=== PATIENT | male | born 1995 | race American Indian/Alaskan Native ===

== ENCOUNTER 2018-04-26 21:50 | Emergency (ER) | payer MEDICARE ==
[2018-04-26] MEDS ORDERED: TYLENOL PO ONE (22:48)
--- NOTE | 2018-04-27 02:23 | Emergency Department Report ---
ED Headache HPI - General Chief Complaint: Headache Stated Complaint: LEFT SIDE HEAD PAIN Time Seen by Provider: 04/27/18 02:06 - History of Present Illness Initial Comments: Physical [id number] -[place] female who presents for left temporal headache 2 days this headache is similar to several previous headaches the past several N duration and intensity patient states headaches usually controlled by Depakote Breakthrough Tylenol patient states he took 3 Tylenol just prior to arrival to ED headache is now resolved there is no pain no photophobia no tinnitus no nausea vomiting no dizziness patient does have PCP and no other neuro symptoms at this time Timing/Duration: 24 hours Quality: moderate Head Injury Location: temporal Recent Head Trauma: chronic headaches Modifying Factors: improves with: movement Associated Symptoms: denies symptoms Allergies/Adverse Reactions: Allergies No Known Allergies Allergy (Verified 04/27/18 02:09) Home Medications: Ambulatory Orders Depakote 500 mg PO BID 04/26/18 Acetaminophen [Tylenol Extra Strength] 1,000 mg PO QID PRN #30 tablet 04/27/18 Metoclopramide [Reglan] 10 mg PO ACHS PRN #30 tablet 04/27/18 diphenhydrAMINE [Benadryl CAP] 25 mg PO Q6HR PRN #30 capsule 04/27/18 ED Review of Systems ROS: Stated complaint: LEFT SIDE HEAD PAIN Other details as noted in HPI Constitutional: denies: chills, fever Eyes: denies: eye pain, eye discharge, vision change ENT: denies: ear pain, throat pain Respiratory: denies: cough, shortness of breath, wheezing Cardiovascular: denies: chest pain, palpitations Endocrine: no symptoms reported Gastrointestinal: denies: abdominal pain, nausea, diarrhea Genitourinary: denies: urgency, dysuria Musculoskeletal: denies: back pain, joint swelling, arthralgia Skin: denies: rash, lesions Neurological: headache Psychiatric: denies: anxiety, depression Hematological/Lymphatic: denies: easy bleeding, easy bruising ED Past Medical Hx - Past Medical History Previous Medical History?: No Hx Psychiatric Treatment: Yes (Schizophrenia) - Surgical History Past Surgical History?: No - Social History Smoking Status: Never Smoker Substance Use Type: None - Medications Home Medications: Home Medications Medication Instructions Recorded Confirmed Last Taken Type Depakote 500 mg PO BID 04/26/18 04/26/18 Unknown History Acetaminophen [Tylenol Extra 1,000 mg PO QID PRN #30 tablet 04/27/18 Unknown Rx Strength] Metoclopramide [Reglan] 10 mg PO ACHS PRN #30 tablet 04/27/18 Unknown Rx diphenhydrAMINE [Benadryl CAP] 25 mg PO Q6HR PRN #30 capsule 04/27/18 Unknown Rx ED Physical Exam - General Limitations: Language Barrier General appearance: alert, in no apparent distress - Head Head exam: Present: atraumatic, normocephalic, normal inspection - Eye Eye exam: Present: normal appearance, PERRL, EOMI Pupils: Present: normal accommodation - ENT ENT exam: Present: normal exam, normal orophraynx, mucous membranes moist, TM's normal bilaterally, normal external ear exam - Neck Neck exam: Present: normal inspection, full ROM. Absent: tenderness, meningismus, lymphadenopathy, thyromegaly - Expanded Neck Exam Expanded Neck exam: Absent: tenderness, midline deformity, anterior neck swelling, thyroid mass, carotid bruit, tracheal deviation - Respiratory Respiratory exam: Present: normal lung sounds bilaterally. Absent: respiratory distress, wheezes, stridor, chest wall tenderness - Cardiovascular Cardiovascular Exam: Present: regular rate, normal rhythm, normal heart sounds. Absent: systolic murmur, diastolic murmur, rubs, gallop - GI/Abdominal GI/Abdominal exam: Present: soft, normal bowel sounds. Absent: tenderness, bruit, hernia - Rectal Rectal exam: Present: deferred - Extremities Exam Extremities exam: Present: normal inspection, full ROM, tenderness, normal capillary refill - Back Exam Back exam: Present: normal inspection, full ROM. Absent: tenderness - Neurological Exam Neurological exam: Present: alert, oriented X3, CN II-XII intact, normal gait, reflexes normal. Absent: motor sensory deficit - Expanded Neurological Exam Expanded Patient oriented to: Present: person, place, time Speech: Present: fluid speech Cranial nerves: EOM's Intact: Normal, Gag Reflex: Normal, Tongue Deviation: Normal, Nystagmus: Normal, Facial Sensation: Normal Cerebellar function: Romberg: Normal Upper motor neuron: Simba Neglect: Normal, Pronator Drift: Normal, Sensory Extinction: Normal Sensory exam: Upper Extremity Light Touch: Normal, Upper Extremity Pin Prick: Normal, Upper Extremity Temperature: Normal, UE 2 Point Discrimination: Normal, Lower Extremity Light Touch: Normal, Lower Extremity Pin Prick: Normal, Lower Extremity Temperature: Normal, LE 2 Point Discrimination: Normal Motor strength exam: RUE: 5, LUE: 5, RLE: 5, LLE: 5 Best Eye Response ([place]ston): (4) open spontaneously Best Motor Response (Winston): (6) obeys commands Best Verbal Response ([place]): (5) oriented [place] Total: 15 - Psychiatric Psychiatric exam: Present: normal affect, normal mood - Skin Skin exam: Present: warm, dry, intact, normal color. Absent: rash ED Course Vital Signs 04/26/18 22:43 Temperature 97.9 F Pulse Rate 62 Respiratory 18 Rate Blood Pressure 128/69 O2 Sat by Pulse 99 Oximetry ED Medical Decision Making - Medical Decision Making headache is relieved This wasn't an acute exacerbation of chronic headaches. Relieved by Tylenol plan patient will continue to take Depakote as her PCP refill Tylenol Benadryl Reglan for when necessary breakthrough headaches patient will return to emergency department should symptoms worsen. Otherwise we'll see PCP in 2 days patient verbalized agreement and understanding of the same , pt is currently a/io x 3 ambulatory with steady gait and nad at this time. Critical care attestation.: If time is entered above; I have spent that time in minutes in the direct care of this critically ill patient, excluding procedure time. ED Disposition Clinical Impression: Headache Qualifiers: Headache type: unspecified Headache chronicity pattern: acute headache Intractability: not intractable Qualified Code(s): R51 - Headache Disposition: -01 TO HOME OR SELFCARE Is pt being admited?: No Does the pt Need Aspirin: No Condition: Stable Instructions: Acute Headache (ED) Prescriptions: Acetaminophen [Tylenol Extra Strength] 1,000 mg PO QID PRN #30 tablet PRN Reason: Headache diphenhydrAMINE [Benadryl CAP] 25 mg PO Q6HR PRN #30 capsule PRN Reason: Headache Metoclopramide [Reglan] 10 mg PO ACHS PRN #30 tablet PRN Reason: Headache Referrals: NELSON CANAS MD [Primary Care Provider] - 3-5 Days Forms: Work/School Release Form(ED) Time of Disposition: 02:28
[2018-04-27 02:40] VITALS: BP 126/75
== END 2018-04-27 02:39 | disposition home or self-care (01) ==
LOC: ED 21:50
DX: R51 Headache (principal); F20.9 Schizophrenia, unspecified

== ENCOUNTER 2018-05-15 20:14 | Emergency (ER) | payer MEDICARE ==
--- NOTE | 2018-05-15 20:38 | Emergency Department Report ---
Blank Doc - Documentation Documentation: This is a 22-year-old male that he tried to kill himself but jumping of a nhan nena and moving vehicle. Denies any HI. Denies any drug or alcohol. Denies any other complaints. This initial assessment diagnostic orders/clinical plan/treatment(s) is/are subject to change based on patient's health status, clinical progression and re- assessment by fellow clinical providers in the ED. Further treatment and workup at subsequent clinical providers discretion. Patient/guardians urged not to elope from ED s their condition may be serious if not clinically assessed and managed. Initial orders include: 1-seed cutter was notified patient to be sent back [facility] due to SI 2- RN was notified patient to be closed monitor at all times. 3- ED psych orders placed
--- NOTE | 2018-05-15 20:59 | Emergency Department Report ---
ED Psych HPI - General Chief Complaint: Psych Stated Complaint: MICKEY EVAL Time Seen by Provider: 05/15/18 20:35 Source: patient Mode of arrival: Ambulatory - History of Present Illness Initial Comments: Patient is 22 years old male, unknown to me, history of bipolar disorder. Lizbeth ent brought to the emergency room by his manager sterile at the transitional home for suicidal ideation. Patient manager sterile informed the triage nurse that patient texted him stating that he tried to kill himself twice, he tried to jump off a balcony and attempted to jump out of a moving van, both incident witnessed by his manager sterile Mr. Shultz. In the emergency room patient is calm, denying any suicidal or homicidal ideation. He denied auditory or visual hallucination. Patient denied any other symptoms. MD Complaint: suicidal ideation Associated Psychiatric Symptoms: suicidal ideation - Related Data Home Medications Medication Instructions Recorded Confirmed Last Taken Depakote 500 mg PO BID 04/26/18 04/26/18 Unknown Previous Rx's Medication Instructions Recorded Last Taken Type Acetaminophen [Tylenol Extra 1,000 mg PO QID PRN #30 tablet 04/27/18 Unknown Rx Strength] Metoclopramide [Reglan] 10 mg PO ACHS PRN #30 tablet 04/27/18 Unknown Rx diphenhydrAMINE [Benadryl CAP] 25 mg PO Q6HR PRN #30 capsule 04/27/18 Unknown Rx Allergies Allergy/AdvReac Type Severity Reaction Status Date / Time No Known Allergies Allergy Verified 04/27/18 02:09 ED Review of Systems ROS: Stated complaint: EVAL Other details as noted in HPI Comment: All other systems reviewed and negative Constitutional: denies: chills, fever Respiratory: denies: cough, orthopnea, shortness of breath, SOB with exertion, SOB at rest, wheezing Cardiovascular: denies: chest pain, palpitations Gastrointestinal: denies: abdominal pain, nausea, vomiting, diarrhea, constipation, hematemesis, hematochezia Neurological: denies: headache, weakness, numbness, paresthesias, confusion, abnormal gait Psychiatric: denies: anxiety, depression, auditory hallucinations, visual hallucinations, homicidal thoughts, suicidal thoughts ED Past Medical Hx - Past Medical History Hx Psychiatric Treatment: Yes (Schizophrenia, Bipolar,) - Social History Smoking Status: Current Every Day Smoker Substance Use Type: None - Medications Home Medications: Home Medications Medication Instructions Recorded Confirmed Last Taken Type Depakote 500 mg PO BID 04/26/18 04/26/18 Unknown History Acetaminophen [Tylenol Extra 1,000 mg PO QID PRN #30 tablet 04/27/18 Unknown Rx Strength] Metoclopramide [Reglan] 10 mg PO ACHS PRN #30 tablet 04/27/18 Unknown Rx diphenhydrAMINE [Benadryl CAP] 25 mg PO Q6HR PRN #30 capsule 04/27/18 Unknown Rx ED Physical Exam - General Limitations: No Limitations General appearance: alert, in no apparent distress - Head Head exam: Present: atraumatic, normocephalic, normal inspection - Eye Eye exam: Present: normal appearance, PERRL - ENT ENT exam: Present: normal exam, normal orophraynx, mucous membranes moist - Neck Neck exam: Present: normal inspection, full ROM. Absent: tenderness, meningismus, lymphadenopathy, thyromegaly - Respiratory Respiratory exam: Present: normal lung sounds bilaterally. Absent: respiratory distress, wheezes, rales, rhonchi, stridor, chest wall tenderness, accessory muscle use, decreased breath sounds, prolonged expiratory - Cardiovascular Cardiovascular Exam: Present: regular rate, normal rhythm, normal heart sounds - GI/Abdominal GI/Abdominal exam: Present: soft, normal bowel sounds. Absent: distended, tenderness, guarding, rebound, rigid, organomegaly, mass, bruit, pulsatile mass, hernia - Extremities Exam Extremities exam: Present: normal inspection, full ROM, normal capillary refill. Absent: pedal edema, calf tenderness - Back Exam Back exam: Present: normal inspection, full ROM. Absent: CVA tenderness (R), CVA tenderness (L) - Neurological Exam Neurological exam: Present: alert, oriented X3, CN II-XII intact, normal gait - Psychiatric Psychiatric exam: Present: normal mood. Absent: depressed, agitated, anxious, flat affect, manic, homicidal ideation, suicidal ideation - Skin Skin exam: Present: warm, intact, normal color ED Course Vital Signs 05/15/18 20:36 Temperature 97.9 F Pulse Rate 85 Respiratory 20 Rate Blood Pressure 123/75 O2 Sat by Pulse 98 Oximetry ED Medical Decision Making - Lab Data Result diagrams: 05/15/18 21:10 05/15/18 21:10 Critical care attestation.: If time is entered above; I have spent that time in minutes in the direct care of this critically ill patient, excluding procedure time. ED Disposition Clinical Impression: Suicide attempt Disposition: [id number]/TX-65 PSY HOSP/PSY UNIT Is pt being admited?: No Condition: Stable Referrals: PRIMARY CARE, [Primary Care Provider] - 3-5 Days
[2018-05-15 21:18] LABS: Bilirubin,Urine NEG (Negative); Blood,Urine NEG (Negative); Color,Urine Yellow (Yellow); Mucus,Urine FEW /HPF
[2018-05-15 21:19] LABS: WBC,Urine < 1.0 /HPF (0.0-6.0)
[2018-05-15 21:26] LABS: Amphetamine Screen,Urine PRESUMPTIVE NEGATIVE; Benzodiazepines Screen,Urine PRESUMPTIVE NEGATIVE; Cannabinoid Screen,Urine PRESUMPTIVE NEGATIVE; Cocaine Screen,Urine PRESUMPTIVE NEGATIVE; Methadone Screen,Urine PRESUMPTIVE NEGATIVE; Opiate Screen,Urine PRESUMPTIVE NEGATIVE
[2018-05-15 21:31] LABS: Basophils % (Auto) 0.8 % (0.0-1.8); Eosinophils % (Auto) 0.8 % (0.0-4.3); Hematocrit 44.7 % (35.5-45.6); Hemoglobin 14.7 gm/dl (11.8-15.2); Lymphocytes # (Auto) 1.7 K/mm3 (1.2-5.4); Lymphocytes % (Auto) 32.9 % (13.4-35.0); Mean Corpuscular HGB Conc 33 % (32-34); Mean Corpuscular Volume 90 fl (84-94); Monocytes # (Auto) 0.5 K/mm3 (0.0-0.8); Monocytes % (Auto) 9.2 % (0.0-7.3); Platelet Count 178 K/mm3 (140-440); Red Cell Distribution Width 14.2 % (13.2-15.2)
[2018-05-15 21:45] LABS: Alanine Aminotransferase 14 units/L (7-56); Albumin 4.6 g/dL (3.9-5); BUN/Creatinine Ratio 12; Blood Urea Nitrogen 11 mg/dL (9-20); Calcium 9.4 mg/dL (8.4-10.2); Hemolysis Index 6
[2018-05-16 08:30] VITALS: BP 119/80
== END 2018-05-16 08:31 ==
LOC: ED 20:14
DX: F20.9 Schizophrenia, unspecified (principal); F31.9 Bipolar disorder, unspecified; F17.200 Nicotine dependence, unspecified, uncomplicated; T14.91XA Suicide attempt, initial encounter; Y93.89 Activity, other specified; Y99.8 Other external cause status; Y92.89 Other specified places as the place of occurrence of the external cause
CPT/HCPCS: 36415; 80053; 80307; 81001; 84443; 85025; 99285; G0480; 80320

== ENCOUNTER 2018-07-23 14:47 | Emergency (ER) | payer MEDICARE ==
[2018-07-23] MEDS ORDERED: IBUPROFEN PO ONE (14:55)
--- NOTE | 2018-07-23 14:57 | Emergency Department Report ---
Stated Complaint: PAIN IN BOTH FEET Time Seen by Provider: 07/23/18 14:54 - HPI History of Present Illness: FOOT PAIN IN CORRECTION CO B FOOT PAIN CHRONIC NAD VSS MSE screening note: Focused history and physical exam performed. Due to findings the following was ordered: ED Disposition for MSE Condition: Stable
[2018-07-23 15:39] VITALS: BP 133/67
--- NOTE | 2018-07-23 19:03 | Emergency Department Report ---
ED Extremity Problem HPI - General Chief complaint: Extremity Problem,Nontraumatic Stated complaint: PAIN IN BOTH FEET Time Seen by Provider: 07/23/18 14:54 Source: patient Mode of arrival: Ambulatory Limitations: No Limitations - History of Present Illness Severity scale (0 -10): 6 - Related Data Home Medications Medication Instructions Recorded Confirmed Last Taken Depakote 500 mg PO BID 04/26/18 05/16/18 Unknown Previous Rx's Medication Instructions Recorded Last Taken Type Acetaminophen [Tylenol Extra 1,000 mg PO QID PRN #30 tablet 04/27/18 Unknown Rx Strength] Metoclopramide [Reglan] 10 mg PO ACHS PRN #30 tablet 04/27/18 Unknown Rx diphenhydrAMINE [Benadryl CAP] 25 mg PO Q6HR PRN #30 capsule 04/27/18 Unknown Rx Allergies Allergy/AdvReac Type Severity Reaction Status Date / Time No Known Allergies Allergy Verified 04/27/18 02:09 ED Review of Systems ROS: Stated complaint: PAIN IN BOTH FEET Other details as noted in HPI ED Past Medical Hx - Past Medical History Previous Medical History?: Yes Hx Psychiatric Treatment: Yes (Schizophrenia, Bipolar,) - Surgical History Past Surgical History?: No - Social History Smoking Status: Never Smoker Substance Use Type: Marijuana - Medications Home Medications: Home Medications Medication Instructions Recorded Confirmed Last Taken Type Depakote 500 mg PO BID 04/26/18 05/16/18 Unknown History Acetaminophen [Tylenol Extra 1,000 mg PO QID PRN #30 tablet 04/27/18 05/16/18 Unknown Rx Strength] Metoclopramide [Reglan] 10 mg PO ACHS PRN #30 tablet 04/27/18 05/16/18 Unknown Rx diphenhydrAMINE [Benadryl CAP] 25 mg PO Q6HR PRN #30 capsule 04/27/18 05/16/18 Unknown Rx ED Physical Exam - General Limitations: No Limitations ED Course Vital Signs 07/23/18 15:38 Temperature 98.4 F Pulse Rate 57 L Respiratory 18 Rate Blood Pressure 133/67 O2 Sat by Pulse 97 Oximetry Critical care attestation.: If time is entered above; I have spent that time in minutes in the direct care of this critically ill patient, excluding procedure time. ED Disposition Condition: Stable Referrals: MILY JARQUIN MD [Primary Care Provider] - 3-5 Days
== END 2018-07-23 19:10 | disposition left against medical advice (07) ==
LOC: ED 14:47
DX: M79.671 Pain in right foot (principal); M79.672 Pain in left foot; Z53.21 Procedure and treatment not carried out due to patient leaving prior to being seen by health care provider

== ENCOUNTER 2019-02-10 19:16 | Emergency (ER) | payer MEDICARE ==
[2019-02-10 19:26] VITALS: BP 133/85
--- NOTE | 2019-02-10 19:26 | Emergency Department Report ---
Blank Doc - Documentation Documentation: 23-year-old male that presents with midsternum chest pain after eating a chili dog and smoking a cigaret. Denies any radiation of SOB. This initial assessment/diagnostic orders/clinical plan/treatment(s) is/are subject to change based on patient's health status, clinical progression and re- assessment by fellow clinical providers in the ED. Further treatment and workup at subsequent clinical providers discretion. Patient/guardians urged not to elope from the ED as their condition may be serious if not clinically assessed and managed. Initial orders include: 1- Patient sent to [facility] for further evaluation and treatment 2- EKG 3- CXR
--- NOTE | 2019-02-10 20:38 | XRay Report ---
CHEST 2 VIEWS INDICATION / CLINICAL INFORMATION: MAIN: cp; Pt. c/o sharp pain to upper chest after "smoking a cigarette really fast." and "eating a ch faisal dog." . COMPARISON: None available. FINDINGS: SUPPORT DEVICES: None. HEART / MEDIASTINUM: No significant abnormality. LUNGS / PLEURA: No significant pulmonary or pleural abnormality. No pneumothorax. ADDITIONAL FINDINGS: No significant additional findings. IMPRESSION: 1. No acute findings. Signer Name: Quinton Gallego MD Signed: 02/10/2019 8:33 PM Workstation Name: [id number]
== END 2019-02-10 23:40 | disposition left against medical advice (07) ==
LOC: ED 19:16
DX: R07.89 Other chest pain (principal); Z53.21 Procedure and treatment not carried out due to patient leaving prior to being seen by health care provider
CPT/HCPCS: 71046

== ENCOUNTER 2019-06-26 20:22 | Emergency (ER) | payer MEDICARE ==
[~2019-06-26 20:22] MED LIST: HALOPERIDOL LACTATE 5 MG/1 ML INJ IM ONE; LORazepam 2 MG/ML VIAL IM ONE
[2019-06-26] MEDS ORDERED: HALOPERIDOL LACTATE 5 MG/1 ML INJ ONE (20:51)
[2019-06-26] MEDS ORDERED: LORazepam 2 MG/ML VIAL ONE (20:51)
[2019-06-26 20:56] VITALS: BP 134/72
[2019-06-26] MEDS ORDERED: ALPRAZolam 0.5 MG TAB PO ONE (20:57)
[2019-06-26] MEDS ORDERED: ONDANSETRON 4 MG ODT TAB PO ONE (20:57)
--- NOTE | 2019-06-26 20:57 | Emergency Department Report ---
ED General Adult HPI - General Chief complaint: Pain General Stated complaint: SORE THROAT/VOMITING Time Seen by Provider: 06/26/19 20:44 Source: patient, EMS ( EMS documentation not available at time of chart dictation ), RN notes reviewed, old records reviewed Mode of arrival: Ambulatory Limitations: Other (Patient is a poor historian) - History of Present Illness Initial comments: This is a 23-year-old gentleman who is currently in a alf, for long-term reasons, presents to the hospital with EMS with a complaint of discomfort over his Johnathan's apple, sore throat, resolved nausea and vomiting, paralumbar back pain, and left-sided throbbing shoulder pain. Patient reports that he was outside all day, and he did not want to go back inside to his alf. It is uncertain who called 911. In the emergency room, the patient makes no complaint of headache, neck pain, chest pain, abdominal pain, shortness of breath. There is no complaint of focal extremity weakness and/or numbness. He is not homicidal suicidal. He laughs and giggles inappropriately during his physical examination. He is initially somewhat hyperverbal, but he we are able to calm him down with verbal techniques. At the moment, he is able to tolerate oral feeds in his room, and he is in no acute distress. He is not currently accompanied by a friend, family member or guardian. -: days(s) (1) Location: mouth, back, left, upper extremity Quality: other Consistency: other Improves with: other Worsens with: other Associated Symptoms: other - Related Data Home Medications Medication Instructions Recorded Confirmed Last Taken Depakote 500 mg PO BID 04/26/18 05/16/18 Unknown Previous Rx's Medication Instructions Recorded Last Taken Type Acetaminophen [Tylenol Extra 1,000 mg PO QID PRN #30 tablet 04/27/18 Unknown Rx Strength] Metoclopramide [Reglan] 10 mg PO ACHS PRN #30 tablet 04/27/18 Unknown Rx diphenhydrAMINE [Benadryl CAP] 25 mg PO Q6HR PRN #30 capsule 04/27/18 Unknown Rx Allergies Allergy/AdvReac Type Severity Reaction Status Date / Time No Known Allergies Allergy Verified 04/27/18 02:09 ED Review of Systems ROS: Stated complaint: SORE THROAT/VOMITING Other details as noted in HPI Constitutional: denies: fever Eyes: denies: eye discharge ENT: other (Reports pain over his abdomen). denies: ear pain Respiratory: denies: shortness of breath Gastrointestinal: denies: nausea, vomiting Genitourinary: denies: testicular pain Musculoskeletal: back pain, arthralgia Psychiatric: denies: homicidal thoughts, suicidal thoughts ED Past Medical Hx - Past Medical History Hx Psychiatric Treatment: Yes (Schizophrenia, Bipolar,) - Social History Smoking Status: Unknown if ever smoked Substance Use Type: None - Medications Home Medications: Home Medications Medication Instructions Recorded Confirmed Last Taken Type Depakote 500 mg PO BID 04/26/18 05/16/18 Unknown History Acetaminophen [Tylenol Extra 1,000 mg PO QID PRN #30 tablet 04/27/18 05/16/18 Unknown Rx Strength] Metoclopramide [Reglan] 10 mg PO ACHS PRN #30 tablet 04/27/18 05/16/18 Unknown Rx diphenhydrAMINE [Benadryl CAP] 25 mg PO Q6HR PRN #30 capsule 04/27/18 05/16/18 Unknown Rx ED Physical Exam - General Limitations: Other (Patient giggling inappropriately) General appearance: alert, in no apparent distress - Head Head exam: Present: atraumatic, normocephalic - Eye Eye exam: Present: normal appearance, EOMI - ENT ENT exam: Present: normal exam, normal orophraynx, mucous membranes moist, normal external ear exam - Neck Neck exam: Present: normal inspection, full ROM. Absent: tenderness, meningismus - Respiratory Respiratory exam: Present: normal lung sounds bilaterally. Absent: respiratory distress - Cardiovascular Cardiovascular Exam: Present: regular rate, normal rhythm, normal heart sounds. Absent: bradycardia, tachycardia, irregular rhythm, systolic murmur, diastolic murmur, rubs, gallop - GI/Abdominal GI/Abdominal exam: Present: soft, normal bowel sounds. Absent: distended, tenderness, guarding, rebound, rigid, pulsatile mass - Rectal Rectal exam: Present: deferred - Extremities Exam Extremities exam: Present: normal inspection, full ROM, other (2+ pulses noted in the bilateral upper and lower extremities. There is no palpable cord. negative Homans sign. Muscular compartments are soft. The pelvis is stable.). Absent: pedal edema, calf tenderness - Back Exam Back exam: Present: normal inspection - Neurological Exam Neurological exam: Present: alert, oriented X3, normal gait, other (There is no facial droop. The tongue is midline. Extraocular movements are intact bilaterally. There is 5 out of 5 strength in bilateral upper and lower extremities. Sensation is intact to light touch bilateral upper and lower extremities. T There is a normal gait.). Absent: motor sensory deficit - Psychiatric Psychiatric exam: Present: anxious. Absent: homicidal ideation, suicidal ideation - Skin Skin exam: Present: warm, dry, intact, normal color. Absent: rash ED Course Vital Signs 06/26/19 20:39 Temperature 98.3 F Pulse Rate 98 H Respiratory 16 Rate Blood Pressure 134/72 O2 Sat by Pulse 98 Oximetry ED Medical Decision Making - Lab Data Vital Signs 06/26/19 20:39 Temperature 98.3 F Pulse Rate 98 H Respiratory 16 Rate Blood Pressure 134/72 O2 Sat by Pulse 98 Oximetry - Medical Decision Making Differential diagnosis, including but not limited to: General medical examination Assessment and plan: 23-year-old gentleman, who was initially laughing inappropriately, giggling, somewhat disorganized, but lives in a alf, who is alert and oriented x3, walks with a steady gait, moving 4 extremities, protecting his airway, no active vomiting, with no obvious emergent pathology noted over his neck, shoulder, or back. His physical exam is wholly unremarkable. He is resting comfortably at the time, in no acute distress. There is no history of overdose. He does not appear to have an emergent medical condition at this time. He does not meet criteria for 1013 or involuntary hold to psychiatric facility at this time. Patient does not appear to have an emergent medical issue present and he can follow-up with his outpatient primary care doctor and return to his alf. Critical care attestation.: If time is entered above; I have spent that time in minutes in the direct care of this critically ill patient, excluding procedure time. ED Disposition Clinical Impression: General medical exam, History of nausea Disposition: -01 TO HOME OR SELFCARE Is pt being admited?: No Does the pt Need Aspirin: No Condition: Stable Additional Instructions: Patient does not appear to have an emergent medical condition at this time. Patient does not appear to have an emergent reason that would preclude him from returning to his alf at this time. Patient may follow-up with his outpatient primary care doctor within the next 2 weeks. Please return to the emergency room right away with new, worsened or different symptoms, or symptoms not present on the initial emergency room evaluation Referrals: MILY JARQUIN MD [Staff Physician] - 3-5 Days [facility] [Provider Group] - 3-5 Days Time of Disposition: 21:25 (d/c to alf)
== END 2019-06-26 21:25 | disposition home or self-care (01) ==
LOC: ED 20:22
DX: J02.9 Acute pharyngitis, unspecified (principal); M25.512 Pain in left shoulder; F31.9 Bipolar disorder, unspecified
CPT/HCPCS: 99283; J1630; J2060; Q0162

== ENCOUNTER 2019-07-14 14:36 | Emergency (ER) | payer OTHER, MEDICARE ==
--- NOTE | 2019-07-14 15:15 | Emergency Department Report ---
ED Psych HPI - General Chief Complaint: Psych Stated Complaint: MH EVAL Time Seen by Provider: 07/14/19 15:06 Source: patient Mode of arrival: Ambulatory - History of Present Illness Initial Comments: Patient is a 23-year-old -[place] gentleman with a past medical history of schizophrenia who was sent in because of abnormal behavior. Patient's therapist believes he is not compliant with his medications. Patient was found in the waiting room licking hand electronic wirer. Patient states he is having auditory hallucinations but would not say what the voices are saying. He only states that they are saying a lot. Patient is having occasional outbursts which are off topic. Patient is when asked how he was feeling stated that he wants to see is to girlfriends. Patient occasionally has some jerking movements in the room as well. He denies any homicidal suicidal ideations. States he has no alcohol or drug use but does smoke cigarettes. - Related Data Home Medications Medication Instructions Recorded Confirmed Last Taken Depakote 500 mg PO BID 04/26/18 05/16/18 Unknown Previous Rx's Medication Instructions Recorded Last Taken Type Acetaminophen [Tylenol Extra 1,000 mg PO QID PRN #30 tablet 04/27/18 Unknown Rx Strength] Metoclopramide [Reglan] 10 mg PO ACHS PRN #30 tablet 04/27/18 Unknown Rx diphenhydrAMINE [Benadryl CAP] 25 mg PO Q6HR PRN #30 capsule 04/27/18 Unknown Rx Allergies Allergy/AdvReac Type Severity Reaction Status Date / Time No Known Allergies Allergy Verified 04/27/18 02:09 ED Review of Systems ROS: Stated complaint: MH EVAL Other details as noted in HPI Comment: All other systems reviewed and negative ED Past Medical Hx - Past Medical History Previous Medical History?: Yes Hx Psychiatric Treatment: Yes (Schizophrenia, Bipolar,) - Social History Smoking Status: Unknown if ever smoked Substance Use Type: None - Medications Home Medications: Home Medications Medication Instructions Recorded Confirmed Last Taken Type Depakote 500 mg PO BID 04/26/18 05/16/18 Unknown History Acetaminophen [Tylenol Extra 1,000 mg PO QID PRN #30 tablet 04/27/18 05/16/18 Unknown Rx Strength] Metoclopramide [Reglan] 10 mg PO ACHS PRN #30 tablet 04/27/18 05/16/18 Unknown Rx diphenhydrAMINE [Benadryl CAP] 25 mg PO Q6HR PRN #30 capsule 04/27/18 05/16/18 Unknown Rx ED Physical Exam - General Limitations: No Limitations General appearance: alert, in no apparent distress - Head Head exam: Present: atraumatic, normocephalic - Eye Eye exam: Present: normal appearance - ENT ENT exam: Present: normal orophraynx, mucous membranes moist - Neck Neck exam: Present: normal inspection - Respiratory Respiratory exam: Present: normal lung sounds bilaterally. Absent: respiratory distress, wheezes, rales, rhonchi - Cardiovascular Cardiovascular Exam: Present: regular rate, normal rhythm, normal heart sounds. Absent: systolic murmur, diastolic murmur, rubs, gallop - GI/Abdominal GI/Abdominal exam: Present: soft, normal bowel sounds. Absent: distended, tenderness, guarding, rebound - Rectal Rectal exam: Present: deferred - Extremities Exam Extremities exam: Present: normal inspection - Back Exam Back exam: Present: normal inspection - Neurological Exam Neurological exam: Present: alert, oriented X3 - Psychiatric Psychiatric exam: Present: normal affect, normal mood - Skin Skin exam: Present: warm, dry, intact, normal color. Absent: rash ED Course Vital Signs 07/14/19 07/14/19 07/14/19 14:42 15:40 15:48 Temperature 98.3 F 98.3 F Pulse Rate 67 66 Respiratory 18 16 18 Rate Blood Pressure 124/77 124/77 O2 Sat by Pulse 98 98 Oximetry - Reevaluation(s) Reevaluation #1: 07/14/19 16:39 Patient is medically cleared at this time for psychiatric evaluation Reevaluation #2: 07/14/19 18:31 SOBEIDA PHIPPS Male : 1995 MedRec# [id number] 07/14/19 16:54 - MH Staffing Manager's Note by NEYMAR SAHIKH Acct Num: [id number] : 1995 Patient Age: 23 Pt is a 23 yo AA male presenting to ED for MHE, as pt was presenting with abnormal behavior at outpatient treatment program. During ax, pt presented as bizarre, with tangential thought process, hyperverbal speech and difficulty following direction of conversation. Pt presented with delayed responses throughout assessment and appears to be internally preoccupied. When assistant field hockey coach inquired about A/V H, pt confirmed hearing voices but is guarded with details and informed assistant field hockey coach that its a secret. Pt confirmed that voices are command in nature. Pt reports a dx of Schizoaffective Disorder and denies non- compliance with medication; however, triage note states that pt has not been taking medication. Pt initially reported homelessness but pt resides in [facility] and attends [facility] treatment program. Pt denies legal issues. Pt reports marijuana use, unknown amount. Staffing Manager to refer pt IP for stabilization, as pt presents as manic and with acute psychosis. [address] Initialized on 07/14/19 16:54 - END OF NOTE ED Medical Decision Making - Lab Data Result diagrams: 07/14/19 15:16 07/14/19 15:16 Lab Results 07/14/19 07/14/19 07/14/19 Range/Units 15:16 15:16 15:16 WBC 4.5 (4.5-11.0) K/mm3 RBC 4.72 (3.65-5.03) M/mm3 Hgb 13.9 (11.8-15.2) gm/dl Hct 42.7 (35.5-45.6) % MCV 90 (84-94) fl MCH 29 (28-32) pg MCHC 33 (32-34) % RDW 14.3 (13.2-15.2) % Plt Count 204 (140-440) K/mm3 Lymph % (Auto) 23.7 (13.4-35.0) % [place] % (Auto) 9.6 H (0.0-7.3) % Eos % (Auto) 0.4 (0.0-4.3) % Baso % (Auto) 0.7 (0.0-1.8) % Lymph # 1.1 L (1.2-5.4) K/mm3 [place] # 0.4 (0.0-0.8) K/mm3 Eos # 0.0 (0.0-0.4) K/mm3 Baso # 0.0 (0.0-0.1) K/mm3 Seg Neutrophils % 65.6 (40.0-70.0) % Seg Neutrophils # 2.9 (1.8-7.7) K/mm3 Sodium 138 (137-145) mmol/L Potassium 3.9 (3.6-5.0) mmol/L Chloride 102.0 (98-107) mmol/L Carbon Dioxide 23 (22-30) mmol/L Anion Gap 17 mmol/L BUN 9 (9-20) mg/dL Creatinine 1.0 (0.8-1.5) mg/dL Estimated GFR > 60 ml/min BUN/Creatinine Ratio 9 % Glucose 113 H (75-100) mg/dL Calcium 9.5 (8.4-10.2) mg/dL Urine Color (Yellow) Urine Turbidity (Clear) Urine pH (5.0-7.0) Ur Specific [place] (1.003-1.030) Urine Protein (Negative) mg/dL Urine Glucose (UA) (Negative) mg/dL Urine Ketones (Negative) mg/dL Urine Blood (Negative) Urine Nitrite (Negative) Urine Bilirubin (Negative) Urine Urobilinogen (<2.0) mg/dL Ur Leukocyte Esterase (Negative) Urine WBC (Auto) (0.0-6.0) /HPF Urine RBC (Auto) (0.0-6.0) /HPF Urine Mucus /HPF Salicylates < 0.3 L (2.8-20.0) mg/dL Urine Opiates Screen Urine Methadone Screen Acetaminophen (10.0-30.0) ug/mL Ur Barbiturates Screen Ur Phencyclidine Scrn Ur Amphetamines Screen U Benzodiazepines Scrn Urine Cocaine Screen U Marijuana (THC) Screen Drugs of Abuse Note Plasma/Serum Alcohol (0-0.07) % 07/14/19 07/14/19 07/14/19 Range/Units 15:16 15:16 Unknown WBC (4.5-11.0) K/mm3 RBC (3.65-5.03) M/mm3 Hgb (11.8-15.2) gm/dl Hct (35.5-45.6) % MCV (84-94) fl MCH (28-32) pg MCHC (32-34) % RDW (13.2-15.2) % Plt Count (140-440) K/mm3 Lymph % (Auto) (13.4-35.0) % [place] % (Auto) (0.0-7.3) % Eos % (Auto) (0.0-4.3) % Baso % (Auto) (0.0-1.8) % Lymph # (1.2-5.4) K/mm3 [place] # (0.0-0.8) K/mm3 Eos # (0.0-0.4) K/mm3 Baso # (0.0-0.1) K/mm3 Seg Neutrophils % (40.0-70.0) % Seg Neutrophils # (1.8-7.7) K/mm3 Sodium (137-145) mmol/L Potassium (3.6-5.0) mmol/L Chloride (98-107) mmol/L Carbon Dioxide (22-30) mmol/L Anion Gap mmol/L BUN (9-20) mg/dL Creatinine (0.8-1.5) mg/dL Estimated GFR ml/min BUN/Creatinine Ratio % Glucose (75-100) mg/dL Calcium (8.4-10.2) mg/dL Urine Color Yellow (Yellow) Urine Turbidity Clear (Clear) Urine pH 8.0 H (5.0-7.0) Ur Specific [place] 1.023 (1.003-1.030) Urine Protein <15 mg/dl (Negative) mg/dL Urine Glucose (UA) Neg (Negative) mg/dL Urine Ketones Tr (Negative) mg/dL Urine Blood Neg (Negative) Urine Nitrite Neg (Negative) Urine Bilirubin Neg (Negative) Urine Urobilinogen 2.0 (<2.0) mg/dL Ur Leukocyte Esterase Neg (Negative) Urine WBC (Auto) 1.0 (0.0-6.0) /HPF Urine RBC (Auto) 1.0 (0.0-6.0) /HPF Urine Mucus 1+ /HPF Salicylates (2.8-20.0) mg/dL Urine Opiates Screen Urine Methadone Screen Acetaminophen < 5.0 L (10.0-30.0) ug/mL Ur Barbiturates Screen Ur Phencyclidine Scrn Ur Amphetamines Screen U Benzodiazepines Scrn Urine Cocaine Screen U Marijuana (THC) Screen Drugs of Abuse Note Plasma/Serum Alcohol < 0.01 (0-0.07) % 07/14/19 Range/Units Unknown WBC (4.5-11.0) K/mm3 RBC (3.65-5.03) M/mm3 Hgb (11.8-15.2) gm/dl Hct (35.5-45.6) % MCV (84-94) fl MCH (28-32) pg MCHC (32-34) % RDW (13.2-15.2) % Plt Count (140-440) K/mm3 Lymph % (Auto) (13.4-35.0) % [place] % (Auto) (0.0-7.3) % Eos % (Auto) (0.0-4.3) % Baso % (Auto) (0.0-1.8) % Lymph # (1.2-5.4) K/mm3 [place] # (0.0-0.8) K/mm3 Eos # (0.0-0.4) K/mm3 Baso # (0.0-0.1) K/mm3 Seg Neutrophils % (40.0-70.0) % Seg Neutrophils # (1.8-7.7) K/mm3 Sodium (137-145) mmol/L Potassium (3.6-5.0) mmol/L Chloride (98-107) mmol/L Carbon Dioxide (22-30) mmol/L Anion Gap mmol/L BUN (9-20) mg/dL Creatinine (0.8-1.5) mg/dL Estimated GFR ml/min BUN/Creatinine Ratio % Glucose (75-100) mg/dL Calcium (8.4-10.2) mg/dL Urine Color (Yellow) Urine Turbidity (Clear) Urine pH (5.0-7.0) Ur Specific [place] (1.003-1.030) Urine Protein (Negative) mg/dL Urine Glucose (UA) (Negative) mg/dL Urine Ketones (Negative) mg/dL Urine Blood (Negative) Urine Nitrite (Negative) Urine Bilirubin (Negative) Urine Urobilinogen (<2.0) mg/dL Ur Leukocyte Esterase (Negative) Urine WBC (Auto) (0.0-6.0) /HPF Urine RBC (Auto) (0.0-6.0) /HPF Urine Mucus /HPF Salicylates (2.8-20.0) mg/dL Urine Opiates Screen Presumptive negative Urine Methadone Screen Presumptive negative Acetaminophen (10.0-30.0) ug/mL Ur Barbiturates Screen Presumptive negative Ur Phencyclidine Scrn Presumptive negative Ur Amphetamines Screen Presumptive negative U Benzodiazepines Scrn Presumptive negative Urine Cocaine Screen Presumptive negative U Marijuana (THC) Screen Presumptive positive Drugs of Abuse Note Disclamer Plasma/Serum Alcohol (0-0.07) % Critical care attestation.: If time is entered above; I have spent that time in minutes in the direct care of this critically ill patient, excluding procedure time. ED Disposition Clinical Impression: Acute psychosis Disposition: DC/TX-65 PSY HOSP/PSY UNIT Is pt being admited?: No Does the pt Need Aspirin: No Condition: Stable Time of Disposition: 18:32
[2019-07-14 15:37] LABS: Basophils % (Auto) 0.7 % (0.0-1.8); Eosinophils % (Auto) 0.4 % (0.0-4.3); Hematocrit 42.7 % (35.5-45.6); Hemoglobin 13.9 gm/dl (11.8-15.2); Lymphocytes # (Auto) 1.1 K/mm3 (1.2-5.4); Lymphocytes % (Auto) 23.7 % (13.4-35.0); Mean Corpuscular HGB Conc 33 % (32-34); Mean Corpuscular Volume 90 fl (84-94); Monocytes # (Auto) 0.4 K/mm3 (0.0-0.8); Monocytes % (Auto) 9.6 % (0.0-7.3); Platelet Count 204 K/mm3 (140-440); Red Blood Count 4.72 M/mm3 (3.65-5.03); Red Cell Distribution Width 14.3 % (13.2-15.2)
[2019-07-14 15:53] LABS: BUN/Creatinine Ratio 9; Blood Urea Nitrogen 9 mg/dL (9-20); Calcium 9.5 mg/dL (8.4-10.2); Hemolysis Index 8
[2019-07-14 15:54] LABS: Bilirubin,Urine NEG (Negative); Blood,Urine NEG (Negative); Color,Urine Yellow (Yellow); Mucus,Urine 1+ /HPF; Protein,Urine <15 mg/dL mg/dL (Negative)
[2019-07-14 16:05] LABS: Amphetamine Screen,Urine PRESUMPTIVE NEGATIVE; Benzodiazepines Screen,Urine PRESUMPTIVE NEGATIVE; Cocaine Screen,Urine PRESUMPTIVE NEGATIVE; Methadone Screen,Urine PRESUMPTIVE NEGATIVE; Opiate Screen,Urine PRESUMPTIVE NEGATIVE
[2019-07-14 16:26] LABS: Cannabinoid Screen,Urine PRESUMPTIVE POSITIVE
[2019-07-14 19:36] VITALS: BP 107/60
== END 2019-07-14 19:36 ==
LOC: ED 14:36
DX: F23 Brief psychotic disorder (principal); F31.9 Bipolar disorder, unspecified; Z98.890 Other specified postprocedural states; Z79.899 Other long term (current) drug therapy
CPT/HCPCS: 36415; 80048; 80307; 80320; 81001; 85025; G0480

== ENCOUNTER 2019-08-31 10:43 | Emergency (ER) | payer OTHER, MEDICARE ==
[2019-08-31 11:12] VITALS: BP 114/67
[2019-08-31 11:13] LABS: Bilirubin,Urine NEG (Negative); Blood,Urine NEG (Negative); Color,Urine Colorless (Yellow); Protein,Urine <15 mg/dL mg/dL (Negative); Urobilinogen,Urine < 2.0 mg/dL (<2.0); WBC,Urine < 1.0 /HPF (0.0-6.0)
[2019-08-31 11:18] LABS: Amphetamine Screen,Urine PRESUMPTIVE NEGATIVE; Benzodiazepines Screen,Urine PRESUMPTIVE NEGATIVE; Cannabinoid Screen,Urine PRESUMPTIVE NEGATIVE; Cocaine Screen,Urine PRESUMPTIVE NEGATIVE; Methadone Screen,Urine PRESUMPTIVE NEGATIVE; Opiate Screen,Urine PRESUMPTIVE NEGATIVE
[2019-08-31 11:34] LABS: Basophils % (Auto) 0.9 % (0.0-1.8); Eosinophils % (Auto) 1.6 % (0.0-4.3); Hemoglobin 14.5 gm/dl (11.8-15.2); Lymphocytes # (Auto) 0.9 K/mm3 (1.2-5.4); Lymphocytes % (Auto) 32.2 % (13.4-35.0); Mean Corpuscular HGB Conc 33 % (32-34); Mean Corpuscular Volume 91 fl (84-94); Monocytes # (Auto) 0.2 K/mm3 (0.0-0.8); Platelet Count 173 K/mm3 (140-440); Red Blood Count 4.87 M/mm3 (3.65-5.03); Red Cell Distribution Width 14.9 % (13.2-15.2)
[2019-08-31 11:48] LABS: BUN/Creatinine Ratio 7; Blood Urea Nitrogen 6 mg/dL (9-20); Calcium 9.3 mg/dL (8.4-10.2); Hemolysis Index 66
--- NOTE | 2019-08-31 12:05 | Emergency Department Report ---
ED Psych HPI - General Chief Complaint: Psych Stated Complaint: HEARING VOICES Time Seen by Provider: 08/31/19 11:18 Source: EMS Mode of arrival: Ambulatory - History of Present Illness Initial Comments: This is a 23-year-old male with a history of psychiatric disorder. He states that he is on Depakote. He is not currently having auditory hallucinations. He states he has been thinking of hurting himself. He was brought in by [facility] for SI and AH according to the triage note. He states that he is not homeless. In fact he gets his psychiatric medicines mailed to him every month. He states he used to be on top of his medicines but he does not know the other medicines that he is taking. He states that he is forlorn about his family not caring about him. He tells me that he has hurt himself in the past. However he could not demonstrate any prior scar or injury. He then points to me to a small scab on his knee which did not seem to be self-inflicted. Patient tells me that he was admitted to [facility] for similar symptoms approximately 2 to 3 weeks ago. MD Complaint: suicidal ideation, other -: Gradual, days(s) Associated Psychiatric Symptoms: suicidal ideation, auditory hallucinations History of same: Yes Quality: intermittent Improves With: none Worsens With: none Associated Symptoms: denies other symptoms Treatments Prior to Arrival: placed on mental he If Self Harm: admits thoughts of (Does not have a plan) - Related Data Home Medications Medication Instructions Recorded Confirmed Last Taken Depakote 500 mg PO BID 04/26/18 05/16/18 Unknown Previous Rx's Medication Instructions Recorded Last Taken Type Acetaminophen [Tylenol Extra 1,000 mg PO QID PRN #30 tablet 04/27/18 Unknown Rx Strength] Metoclopramide [Reglan] 10 mg PO ACHS PRN #30 tablet 04/27/18 Unknown Rx diphenhydrAMINE [Benadryl CAP] 25 mg PO Q6HR PRN #30 capsule 04/27/18 Unknown Rx Ondansetron [Zofran Odt] 4 mg PO Q8HR PRN #12 tab.rapdis 08/28/19 Unknown Rx Allergies Allergy/AdvReac Type Severity Reaction Status Date / Time No Known Allergies Allergy Verified 08/28/19 15:00 ED Review of Systems ROS: Stated complaint: HEARING VOICES Other details as noted in HPI Constitutional: denies: chills, fever Eyes: denies: eye pain, vision change ENT: denies: ear pain, throat pain Respiratory: denies: cough, shortness of breath, wheezing Cardiovascular: denies: chest pain, palpitations Endocrine: no symptoms reported Gastrointestinal: denies: abdominal pain, vomiting Genitourinary: denies: urgency, dysuria Musculoskeletal: denies: back pain, arthralgia Skin: denies: rash, lesions Neurological: denies: headache, weakness, paresthesias Psychiatric: as per HPI Hematological/Lymphatic: denies: easy bleeding, easy bruising ED Past Medical Hx - Past Medical History Hx Psychiatric Treatment: Yes (Schizophrenia, Bipolar,) - Social History Smoking Status: Never Smoker Substance Use Type: None - Medications Home Medications: Home Medications Medication Instructions Recorded Confirmed Last Taken Type Depakote 500 mg PO BID 04/26/18 05/16/18 Unknown History Acetaminophen [Tylenol Extra 1,000 mg PO QID PRN #30 tablet 04/27/18 05/16/18 Unknown Rx Strength] Metoclopramide [Reglan] 10 mg PO ACHS PRN #30 tablet 04/27/18 05/16/18 Unknown Rx diphenhydrAMINE [Benadryl CAP] 25 mg PO Q6HR PRN #30 capsule 04/27/18 05/16/18 Unknown Rx Ondansetron [Zofran Odt] 4 mg PO Q8HR PRN #12 tab.rapdis 08/28/19 Unknown Rx ED Physical Exam - General Limitations: No Limitations General appearance: alert, in no apparent distress - Head Head exam: Present: atraumatic, normocephalic - Eye Eye exam: Present: normal appearance. Absent: scleral icterus - ENT ENT exam: Present: mucous membranes moist - Neck Neck exam: Present: normal inspection - Respiratory Respiratory exam: Present: normal lung sounds bilaterally. Absent: respiratory distress - Cardiovascular Cardiovascular Exam: Present: regular rate, normal rhythm. Absent: systolic murmur, diastolic murmur, rubs, gallop - GI/Abdominal GI/Abdominal exam: Present: soft, normal bowel sounds. Absent: distended, tenderness - Rectal Rectal exam: Present: deferred - Extremities Exam Extremities exam: Present: normal inspection - Back Exam Back exam: Present: normal inspection - Neurological Exam Neurological exam: Present: alert, oriented X3, CN II-XII intact. Absent: motor sensory deficit - Psychiatric Psychiatric exam: Present: normal mood, flat affect - Skin Skin exam: Present: warm, dry, intact, normal color. Absent: rash ED Course Vital Signs 08/31/19 11:09 Temperature 97.8 F Pulse Rate 66 Respiratory 18 Rate Blood Pressure 114/67 [Left] O2 Sat by Pulse 99 Oximetry - Reevaluation(s) Reevaluation #1: Patient does not appear to be overtly depressed. He does not have any current auditory hallucinosis. It would seem that secondary gain could be a possib ility. He has had a recent hospitalization. I will place him on a mental health hold but not yet 1013. His mental health evaluation is pending. 08/31/19 12:05 Reevaluation #2: Patient was accepted at [facility]. 1013 was requested. It was completed. Transfer is pending. 08/31/19 12:35 ED Medical Decision Making - Lab Data Result diagrams: 08/31/19 11:07 08/31/19 11:07 Laboratory Results - last 24 hr 08/31/19 08/31/19 08/31/19 11:07 11:07 11:07 WBC RBC Hgb Hct MCV MCH MCHC RDW Plt Count Lymph % (Auto) [place] % (Auto) Eos % (Auto) Baso % (Auto) Lymph # [place] # Eos # Baso # Seg Neutrophils % Seg Neutrophils # Sodium 138 Potassium 4.6 Chloride 102.4 Carbon Dioxide 26 Anion Gap 14 BUN 6 L Creatinine 0.9 Estimated GFR > 60 BUN/Creatinine Ratio 7 Glucose 63 L Calcium 9.3 Urine Color Urine Turbidity Urine pH Ur Specific [place] Urine Protein Urine Glucose (UA) Urine Ketones Urine Blood Urine Nitrite Urine Bilirubin Urine Urobilinogen Ur Leukocyte Esterase Urine WBC (Auto) Urine RBC (Auto) Salicylates < 0.3 L Urine Opiates Screen Urine Methadone Screen Acetaminophen < 5.0 L Ur Barbiturates Screen Ur Phencyclidine Scrn Ur Amphetamines Screen U Benzodiazepines Scrn Urine Cocaine Screen U Marijuana (THC) Screen Drugs of Abuse Note Plasma/Serum Alcohol 08/31/19 08/31/19 08/31/19 11:07 11:07 Unknown WBC 2.7 L RBC 4.87 Hgb 14.5 Hct 44.0 MCV 91 MCH 30 MCHC 33 RDW 14.9 Plt Count 173 Lymph % (Auto) 32.2 [place] % (Auto) 9.0 H Eos % (Auto) 1.6 Baso % (Auto) 0.9 Lymph # 0.9 L [place] # 0.2 Eos # 0.0 Baso # 0.0 Seg Neutrophils % 56.3 Seg Neutrophils # 1.5 L Sodium Potassium Chloride Carbon Dioxide Anion Gap BUN Creatinine Estimated GFR BUN/Creatinine Ratio Glucose Calcium Urine Color Colorless Urine Turbidity Clear Urine pH 7.0 Ur Specific [place] 1.002 L Urine Protein <15 mg/dl Urine Glucose (UA) Neg Urine Ketones Neg Urine Blood Neg Urine Nitrite Neg Urine Bilirubin Neg Urine Urobilinogen < 2.0 Ur Leukocyte Esterase Neg Urine WBC (Auto) < 1.0 Urine RBC (Auto) 1.0 Salicylates Urine Opiates Screen Urine Methadone Screen Acetaminophen Ur Barbiturates Screen Ur Phencyclidine Scrn Ur Amphetamines Screen U Benzodiazepines Scrn Urine Cocaine Screen U Marijuana (THC) Screen Drugs of Abuse Note Plasma/Serum Alcohol < 0.01 08/31/19 Unknown WBC RBC Hgb Hct MCV MCH MCHC RDW Plt Count Lymph % (Auto) [place] % (Auto) Eos % (Auto) Baso % (Auto) Lymph # [place] # Eos # Baso # Seg Neutrophils % Seg Neutrophils # Sodium Potassium Chloride Carbon Dioxide Anion Gap BUN Creatinine Estimated GFR BUN/Creatinine Ratio Glucose Calcium Urine Color Urine Turbidity Urine pH Ur Specific [place] Urine Protein Urine Glucose (UA) Urine Ketones Urine Blood Urine Nitrite Urine Bilirubin Urine Urobilinogen Ur Leukocyte Esterase Urine WBC (Auto) Urine RBC (Auto) Salicylates Urine Opiates Screen Presumptive negative Urine Methadone Screen Presumptive negative Acetaminophen Ur Barbiturates Screen Presumptive negative Ur Phencyclidine Scrn Presumptive negative Ur Amphetamines Screen Presumptive negative U Benzodiazepines Scrn Presumptive negative Urine Cocaine Screen Presumptive negative U Marijuana (THC) Screen Presumptive negative Drugs of Abuse Note Disclamer Plasma/Serum Alcohol Critical care attestation.: If time is entered above; I have spent that time in minutes in the direct care of this critically ill patient, excluding procedure time. ED Disposition Clinical Impression: Psychiatric disorder, Suicidal ideation Disposition: DC/TX-65 PSY HOSP/PSY UNIT Is pt being admited?: No Does the pt Need Aspirin: No Condition: Stable Time of Disposition: 12:36
[2019-08-31] MEDS ORDERED: ALUM-MAG HYDROXIDE-SIMETHICONE 200-200-20MG/5ML ORAL LIQD 30 ML PO PRN (12:07)
[2019-08-31] MEDS ORDERED: MAGNESIUM HYDROXIDE (MOM) ORAL LIQD UDC PO PRN (12:07)
[2019-08-31] MEDS ORDERED: ACETAMINOPHEN 325 MG TAB PO PRN (12:07)
[2019-08-31] MEDS ORDERED: ZIPRASIDONE 20 MG CAP PO ONE (12:08)
[2019-08-31] MEDS ORDERED: DIVALPROEX DR 500 MG TAB PO ONE (12:08)
[2019-08-31] MEDS ORDERED: DIVALPROEX DR 500 MG TAB ONE (15:16)
[2019-08-31] MEDS ORDERED: ZIPRASIDONE 20 MG CAP ONE (15:17)
[2019-08-31] MEDS ORDERED: ZIPRASIDONE 20 MG CAP PO SCH ×2 (22:00)
== END 2019-08-31 17:22 ==
LOC: ED 10:43
DX: F31.9 Bipolar disorder, unspecified (principal); R45.851 Suicidal ideations; R44.0 Auditory hallucinations; F20.9 Schizophrenia, unspecified
CPT/HCPCS: 36415; 80048; 80307; 80320; 81001; 85025; G0480